=== PATIENT | female | born 1935 | race African-American/Black ===

== ENCOUNTER 2018-02-17 15:43 | Emergency (ER) | payer MEDICARE ==
[~2018-02-17] VITALS: Ht 172.7 cm; Wt 75.0 kg
[~2018-02-17 15:43] MED LIST: AMLO10TA80 PO; CLOP75TA33 PO; DIAZ10TA4 PO; FERR-63 PO; HYDR-4134 PO; HYDR12.54 PO; LISI-604 PO; METF500T6 PO; Prandin PO; RANI150T7 PO
[2018-02-17 15:47] VITALS: BP 148/82
== END 2018-02-17 18:18 | disposition home or self-care (01) ==
LOC: ER 15:43
DX: M79.89 Other specified soft tissue disorders (principal); J44.9 Chronic obstructive pulmonary disease, unspecified; E11.9 Type 2 diabetes mellitus without complications; I25.2 Old myocardial infarction; E78.00 Pure hypercholesterolemia, unspecified; Z88.0 Allergy status to penicillin; Z88.1 Allergy status to other antibiotic agents; Z91.011 Allergy to milk products; Z88.8 Allergy status to other drugs, medicaments and biological substances; Z79.899 Other long term (current) drug therapy
CPT/HCPCS: 73130; 99284